=== PATIENT | male | born 1960 | race Caucasian/White ===

== ENCOUNTER 2025-01-12 22:08 | Inpatient (IN) | payer OTHER ==
[~2025-01-12] VITALS: Ht 177.8 cm; Wt 69.0 kg
[~2025-01-12 22:08] MED LIST: LORAZEPAM1 MG PO; ONDANSETRON HYDR8 MG PO; OXYCODONE HCL20 M1 PO; PANTOPRAZOLE SO40 MG PO; PHARMASSURE FO0.8 MG PO; PROBIOTIC250 MG PO
[2025-01-12] MEDS ORDERED: MORPHINE Sulfate 50 MG in SODIUM CHLORIDE 0.9% 45 ML IV SCH (23:00)
[2025-01-13] VITALS: BP 90/68
[2025-01-13] MEDS ORDERED: ACETAMINOPHEN 325 MG TAB PO PRN (00:35)
[2025-01-13] MEDS ORDERED: ACETAMINOPHEN 650 MG SUPP R PRN (00:35)
[2025-01-13] MEDS ORDERED: LORazepam 0.5 MG TAB PO PRN (00:40)
[2025-01-13] MEDS ORDERED: Promethazine Hydrochloride 25 MG/ML VIAL IV PRN (01:10)
[2025-01-13] MEDS ORDERED: Ondansetron Hydrochloride 4 MG/2 ML VIAL IV PRN (01:10)
[2025-01-13] MEDS ORDERED: HYOSCYAMINE SULFATE 0.125 MG TAB PO SCH (06:00)
[2025-01-13 08:00] VITALS: BP 110/54
[2025-01-13] MEDS ORDERED: BISACODYL 10 MG SUPP R PRN (09:50)
[2025-01-13] MEDS ORDERED: BISACODYL 10 MG SUPP R SCH (10:00)
[2025-01-13] MEDS ORDERED: Morphine Sulfate 10 MG/0.5 ML CONCENTRATE ORAL SYRINGE PO SCH (12:00)
[2025-01-13] MEDS ORDERED: Morphine Sulfate 10 MG/0.5 ML CONCENTRATE ORAL SYRINGE PO PRN (12:00)
[2025-01-13 16:00] VITALS: BP 92/74
[2025-01-13 20:00] VITALS: BP 107/51
[2025-01-14] VITALS: BP 97/51
[2025-01-14 08:00] VITALS: BP 102/49
[2025-01-14 12:00] VITALS: BP 132/77
[2025-01-14] MEDS ORDERED: Morphine Sulfate 10 MG/0.5 ML CONCENTRATE ORAL SYRINGE PO SCH (12:00)
[2025-01-14 16:00] VITALS: BP 100/55
[2025-01-14 20:00] VITALS: BP 115/57
[2025-01-15] VITALS: BP 124/59
[2025-01-15 00:16] VITALS: BP 115/54
[2025-01-15 04:00] VITALS: BP 115/54
[2025-01-15 08:00] VITALS: BP 139/73
== END 2025-01-15 13:52 | disposition hospice, home (50) | DRG 871 ==
LOC: 5E 22:08 → ICCU 22:08 → 5E 01-13 13:29
PROVIDERS: ADMIT Family Medicine; ATTEND Family Medicine
DX: A41.9 Sepsis, unspecified organism (principal); E43 Unspecified severe protein-calorie malnutrition; G93.41 Metabolic encephalopathy; J69.0 Pneumonitis due to inhalation of food and vomit; J96.01 Acute respiratory failure with hypoxia; N17.0 Acute kidney failure with tubular necrosis; E87.20 Acidosis, unspecified; E87.1 Hypo-osmolality and hyponatremia; D64.9 Anemia, unspecified; R65.20 Severe sepsis without septic shock; E83.42 Hypomagnesemia; R73.9 Hyperglycemia, unspecified; E83.51 Hypocalcemia; J44.9 Chronic obstructive pulmonary disease, unspecified; Z51.5 Encounter for palliative care; Z85.118 Personal history of other malignant neoplasm of bronchus and lung; Z85.05 Personal history of malignant neoplasm of liver; Z68.21 Body mass index [BMI] 21.0-21.9, adult; Z79.01 Long term (current) use of anticoagulants; Z79.2 Long term (current) use of antibiotics